=== PATIENT | male | born 1955 | race Native Hawaiian/Other Pacific Islander ===

== ENCOUNTER 2020-03-02 15:44 | Emergency (ER) | payer BC ==
[~2020-03-02] VITALS: Ht 185.4 cm; Wt 61.2 kg
[~2020-03-02 15:44] MED LIST: AMLO2.5T PO; ASA LO-DOSE81 MG PO; AVALIDE1 TA1 PO
[2020-03-02 15:55] VITALS: TEMP 98.9
[2020-03-02 17:13] LABS: PLATELET COUNT 192 K/uL (142-355)
[2020-03-02 17:24] LABS: POTASSIUM 3.7 mmol/L (3.6-5.2)
[2020-03-02 19:12] VITALS: BP 170/77
== END 2020-03-02 19:32 | disposition home or self-care (01) ==
LOC: ED 15:44
PROVIDERS: Emergency Medicine
DX: R41.82 Altered mental status, unspecified (principal); F03.90 Unspecified dementia, unspecified severity, without behavioral disturbance, psychotic disturbance, mood disturbance, and anxiety; Z03.818 Encounter for observation for suspected exposure to other biological agents ruled out
CPT/HCPCS: 80053; 85027; 87635; 93005; 99283; U0003

== ENCOUNTER 2020-03-08 08:35 | Outpatient (CLI) | payer BC | END 2020-03-08 19:03 | disposition home or self-care (01) | LOC: MRI 08:35 | DX: R41.82 Altered mental status, unspecified (principal) | CPT/HCPCS: A9576 ==

== ENCOUNTER 2020-04-18 09:49 | Outpatient (CLI) | payer BC ==
[2020-04-18 10:24] LABS: PLATELET COUNT 241 K/uL (142-355)
[2020-04-18 10:36] LABS: POTASSIUM 4.6 mmol/L (3.6-5.2)
== END 2020-04-18 20:28 | disposition home or self-care (01) ==
LOC: LABW 09:49
PROVIDERS: Internal Medicine
DX: R41.82 Altered mental status, unspecified (principal)
CPT/HCPCS: 36415; 80053; 80061; 81000; 82043; 82570; 82607; 82746; 83704; 83735; 84100; 84155; 85027; 85651; 86038

== ENCOUNTER 2020-08-22 08:59 | Outpatient (CLI) | payer BC | END 2020-08-22 22:48 | disposition home or self-care (01) | LOC: LABW 08:59 | PROVIDERS: ATTEND Nurse Practitioner | DX: E83.52 Hypercalcemia (principal) | CPT/HCPCS: 36415; 82306; 82330; 83970 ==

== ENCOUNTER 2021-02-07 10:49 | Outpatient (CLI) | payer BC, OTHER ==
[2021-02-07 11:43] LABS: PLATELET COUNT 289 K/uL (142-355)
[2021-02-07 14:03] LABS: POTASSIUM 4.2 mmol/L (3.6-5.2)
== END 2021-02-07 21:22 | disposition home or self-care (01) ==
LOC: LABW 10:49
PROVIDERS: ATTEND Internal Medicine
DX: E83.52 Hypercalcemia (principal); I10 Essential (primary) hypertension; R53.83 Other fatigue
CPT/HCPCS: 36415; 80053; 82043; 82306; 82330; 82570; 82728; 83036; 83540; 83550; 83735; 83970; 84100; 84155; 84402; 84403; 84439; 84443; 85027; 86038; 86140

== ENCOUNTER 2021-02-28 09:04 | Outpatient (CLI) | payer BC, OTHER ==
[2021-02-28 10:06] LABS: PLATELET COUNT 322 K/uL (142-355)
[2021-02-28 10:30] LABS: POTASSIUM 4.3 mmol/L (3.6-5.2)
== END 2021-02-28 20:32 | disposition home or self-care (01) ==
LOC: LABW 09:04
PROVIDERS: ATTEND Nurse Practitioner
DX: I10 Essential (primary) hypertension (principal); E83.52 Hypercalcemia
CPT/HCPCS: 36415; 80053; 82043; 82306; 82330; 82570; 83735; 83970; 84100; 84155; 85027

== ENCOUNTER 2021-06-26 08:24 | Outpatient (CLI) | payer OTHER ==
[2021-06-26 08:46] LABS: PLATELET COUNT 232 K/uL (142-355)
[2021-06-26 09:04] LABS: POTASSIUM 4.6 mmol/L (3.6-5.2)
== END 2021-06-26 18:48 | disposition home or self-care (01) ==
LOC: LABW 08:24
PROVIDERS: ATTEND Internal Medicine
DX: N18.30 Chronic kidney disease, stage 3 unspecified (principal)
CPT/HCPCS: 36415; 80053; 82043; 82330; 82570; 83735; 83970; 84100; 84155; 85027

== ENCOUNTER 2021-11-09 11:36 | Outpatient (CLI) | payer OTHER, BC ==
[2021-11-09 11:56] LABS: PLATELET COUNT 232 K/uL (142-355)
[2021-11-09 12:42] LABS: POTASSIUM 4.3 mmol/L (3.6-5.2)
== END 2021-11-09 21:18 | disposition home or self-care (01) ==
LOC: LABW 11:36
PROVIDERS: ATTEND Internal Medicine
DX: N18.30 Chronic kidney disease, stage 3 unspecified (principal)
CPT/HCPCS: 36415; 80053; 81000; 82043; 82306; 82330; 82570; 82607; 82746; 83735; 83970; 84100; 84156; 85027; 85652

== ENCOUNTER 2023-03-08 11:26 | Outpatient (CLI) | payer BC | END 2023-03-08 19:18 | disposition home or self-care (01) | LOC: RAD 11:26 | PROVIDERS: ATTEND Nurse Practitioner Family | DX: R05.3 Chronic cough (principal); I10 Essential (primary) hypertension | CPT/HCPCS: 93005 ==